=== PATIENT | female | born 2000 | race Caucasian/White ===

== ENCOUNTER 2021-04-02 16:30 | Emergency (ER) | payer OTHER ==
[2021-04-02 17:13] VITALS: BP 114/64; PULSE 63; RESP 18; TEMP 98.3
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
== END 2021-04-02 20:55 | disposition home or self-care (01) ==
LOC: EC 16:30
DX: F32.9 Major depressive disorder, single episode, unspecified (principal); T14.91XA Suicide attempt, initial encounter; Z20.822 Contact with and (suspected) exposure to COVID-19; Z79.1 Long term (current) use of non-steroidal anti-inflammatories (NSAID); X83.8XXA Intentional self-harm by other specified means, initial encounter
CPT/HCPCS: 87635; 99285

== ENCOUNTER 2024-03-28 13:44 | Outpatient (CLI) | payer OTHER ==
[2024-03-28 15:36] VITALS: BP 116/69; PULSE 99; RESP 16; TEMP 98.2
--- NOTE | 2024-04-10 09:55 | P.MSEPDOC ---
Presenting Problems - Arrival Data Date of Arrival on Unit: 03/28/24 Time of Arrival on Unit: 13:44 Mode of Transport: Ambulatory - Complaint OB-Reason for Admission/Chief Complaint: Possible Onset of Labor Medical History - Information : 1 Para: 0 Term: 0 : 0 Abortions: Spontaneous or Elective: 0 Number of Living Children: 0 - Gestational Age Gestational Age by ANTONIO (wks/days): 38 Weeks and 3 Days Review of Systems - Review of Systems Constitutional: No problems Breast: No problems ENT: No problems Cardiovascular: No problems Respiratory: No problems Gastrointestinal: No problems Genitourinary: No problems Musculoskeletal: No problems Neurological: No problems Skin: No problems Vital Signs - Temperature Temperature: 98.2 F Temperature Source: Temporal Artery Scan - Pulse Right Sitting Pulse Rate: 99 Pulse Assessment Method: Automatic Cuff - Respirations Respiratory Rate: 16 Oxygen Delivery Method: Room Air O2 Sat by Pulse Oximetry: 99 - Blood Pressure Right Arm Blood Pressure: 116/69 Blood Pressure Mean: 84 Blood Pressure Source: Automatic Cuff Medical Screen Scoring - Cervical Exam Dilation (cm): 1.5 Effacement (%): 80 Station: -2 Membranes: Intact - Uterine Contractions Frequency From (mins): 5 Frequency To (mins): 8 Duration From (seconds): 60 Duration To (seconds): 80 Intensity: Mild Resting: Soft to palpation - Assessment - Baby A Baseline FHR: 130 Heart Rate - NICHD Category: Category I (Normal) NST: Reactive Physician Notification - Physician Notified Physician Notified Date: 03/28/24 Physician Notified Time: 15:03 Physician: Staci Barron New Order Received: Yes (d/c) Maternal Triage Index - Non-Urgent/Priority 4 Non-Urgent Priority 4: Yes Criteria Met for Priority 4: reactive nst, mild contractions, no change in cervix Disposition - Disposition OB Disposition: Discharge to home, Written follow up instructions reviewed Discharge Date: 03/28/24 Discharge Time: 15:13 I agree with the RN Medical Screening Exam: Yes Case reviewed; plan agreed upon as documented in EMR&OBIX.: Yes Diagnosis: FALSE LABOR AT OR AFTER 37 COMPLETED WEEKS OF GESTATION
== END 2024-03-28 15:13 | disposition home or self-care (01) ==
LOC: FBPOP 13:44
PROVIDERS: ATTEND Obstetrics & Gynecology Obstetrics
CPT/HCPCS: 59025; 99213

== ENCOUNTER 2024-03-29 23:57 | Inpatient (IN) | payer OTHER ==
[2024-03-30] MEDS ORDERED: TRANEXAMIC 1,000 MG/100ML-NACL 1,000 MG in EMPTY BAG 1 BAG IV PRN (00:32)
[2024-03-30] MEDS ORDERED: TERBUTALINE 1 MG/ML VIAL SQ PRN (00:32)
[2024-03-30] MEDS ORDERED: METHYLERGONOVINE 0.2 MG/ML 1 ML AMP IM PRN (00:32)
[2024-03-30] MEDS ORDERED: miSOPROStoL 200 MCG TAB PO PRN (00:32)
[2024-03-30] MEDS ORDERED: LIDOCAINE 0.5% (PF) 5 MG/ML (50 ML SDV) SQ PRN (00:32)
[2024-03-30] MEDS ORDERED: OXYTOCIN 10 UNIT/ML 1 ML VIAL IM PRN (00:32)
[2024-03-30] MEDS ORDERED: miSOPROStoL 200 MCG TAB RECTAL PRN (00:32)
[2024-03-30] MEDS ORDERED: CARBOPROST TROMETHAMINE 250 MCG/ML 1 ML AMP IM PRN (00:32)
[2024-03-30] MEDS: LACTATED RINGERS 1,000 ML IV SCH (00:35)
[2024-03-30] MEDS ORDERED: OXYTOCIN 30 UNITS/500 ML NS 30 UNIT in SALINE 1 500ML.BAG IV SCH (00:45)
[2024-03-30 00:50] LABS: Basophils % (A) 0 %; Eosinophils # (A) 0.1 k/uL (0-0.7); Eosinophils % (A) 1 %; HCT 34.3 % (34.0-46.0); HGB 11.5 gm/dL (11.4-16.0); Lymphocytes % (A) 16 %; MCH 28.8 pg (25.0-35.0); MCHC 33.5 g/dL (31.0-37.0); Mean Platelet Volume 8.5; Monocytes # (A) 0.8 k/uL (0-1.0); Monocytes % (A) 6 %; Neutrophils # (A) 9.4 k/uL (1.3-7.7); Neutrophils % (A) 75 %; Platelet Count 225 k/uL (150-450); RBC 3.99 m/uL (3.80-5.40); RDW 13.4 % (11.5-15.5); WBC 12.6 k/uL (3.8-10.6)
[2024-03-30] MEDS ORDERED: SODIUM CHLORIDE 0.9% 250 ML BAG ONE (01:19)
[2024-03-30] MEDS ORDERED: ROPIVACAINE 5 MG/ML 30 ML VIAL ONE (01:19)
[2024-03-30] MEDS ORDERED: fentaNYL (PF) 50 MCG/ML 5 ML AMP ONE (01:19)
--- NOTE | 2024-03-30 09:43 | P.HPOB ---
History of Present Illness H&P Date: 03/30/24 Chief Complaint: IUP at 38 and 5/7 weeks, active labor 24-year-old 1 para 0 that presented to labor and delivery at 38-5/7 weeks, estimated due date of 04/08 with complaints of regular painful contractions. Patient states contractions began in the early evening and became uncomfortable. Patient presented to labor and delivery and was noted to be 3 cm dilated. Patient was admitted to labor and delivery. Patient notes good movement denies vaginal bleeding or loss of fluid. Patient has been receiving routine care which has been essentially uncomplicated. On blood work this patient is a lot of of O+, rubella status immune, hepatitis B surface engine negative, HIV negative, RPR is nonreactive, hepatitis C is nonreactive, group B strep culture is negative. Review of Systems Constitutional: Denies chills, Denies fatigue, Denies fever Ears, nose, mouth and throat: Denies headache Cardiovascular: Reports leg edema Respiratory: Denies dyspnea Gastrointestinal: Denies constipation, Denies diarrhea, Denies nausea, Denies vomiting Genitourinary: Reports Past Medical History Past Medical History: No Reported History Additional Past Medical History / Comment(s): asthma as child resolved per patient History of Any Multi-Drug Resistant Organisms: None Reported Past Surgical History: No Surgical Hx Reported Past Psychological History: No Psychological Hx Reported Smoking Status: Former smoker Past Alcohol Use History: None Reported Past Drug Use History: None Reported Medications and Allergies Home Medications Medication Instructions Recorded Confirmed Type Aspirin 81 mg PO DAILY 03/28/24 03/30/24 History Vit No.179/Iron/Folic 1 tab PO DAILY 03/28/24 03/30/24 History [ Tablet] Allergies Allergy/AdvReac Type Severity Reaction Status Date / Time No Known Allergies Allergy Verified 03/28/24 14:07 Exam Osteopathic Statement: *. No significant issues noted on an osteopathic structural exam other than those noted in the History and Physical/Consult. Vital Signs Temp Pulse Resp BP Pulse Ox 03/30/24 00:32 97.4 F L 87 15 128/68 97 03/30/24 00:06 97.4 F L 87 15 128/68 97 Intake and Output 03/29/24 03/30/24 03/30/24 22:59 06:59 14:59 Other: Weight 67.132 kg Patient is seen and examined this morning, in general is a well-nourished and well developed female. Breathing is noted to be nonlabored, abdomen is noted to be gravid, on cervical exam she is 9/100/0 station bulging bag of water is appreciated, amniotomy is performed and clear fluid was obtained. heart tones noted be category 1 and she is laurie every 1 to 2 minutes. Results Result Diagrams: 03/30/24 00:40 Abnormal Lab Results - Last 24 Hours (Table) 03/30/24 Range/Units 00:40 WBC 12.6 H (3.8-10.6) k/uL Neutrophils # 9.4 H (1.3-7.7) k/uL Assessment and Plan (1) Term Current Visit: Yes Status: Acute Code(s): Z34.90 - ENCNTR FOR SUPRVSN OF NORMAL , UNSP, UNSP TRIMESTER SNOMED Code(s): 42204219 (2) Active labor Current Visit: Yes Status: Acute Code(s): XYZ2701 - SNOMED Code(s): 498095910 Plan: 24-year-old 1 para 0 at 38-5/7 weeks that presented in active labor. Patient was admitted overnight and made good progress to labor. Patient did receive epidural for analgesia. Anticipate spontaneous vaginal delivery.
[2024-03-30] MEDS ORDERED: LANOLIN CREAM 1 GM TUBE TOPICAL PRN (11:09)
[2024-03-30] MEDS ORDERED: diphenhydrAMINE 25 MG CAP PO PRN (11:09)
[2024-03-30] MEDS ORDERED: ZOLPIDEM 5 MG TAB PO PRN (11:09)
[2024-03-30] MEDS ORDERED: BENZOCAINE/MENTHOL SPRAY 1 GM/SPRAY AEROSOL TOPICAL PRN (11:09)
[2024-03-30] MEDS ORDERED: SIMETHICONE 80 MG CHEWABLE PO PRN (11:09)
[2024-03-30] MEDS ORDERED: HYDROCORTISONE 2.5% RECTAL CREAM 30 GM TUBE RECTAL PRN (11:09)
[2024-03-30] MEDS ORDERED: diphenhydrAMINE 50 MG CAP PO PRN (11:09)
[2024-03-30] MEDS ORDERED: diphenhydrAMINE 50 MG/ML 1 ML VIAL IVP PRN ×2 (11:09)
--- NOTE | 2024-03-30 11:20 | P.PROBDLV ---
Vaginal Delivery Note - . Vaginal Delivery Note: Findings: Viable male infant delivered at 1051 24-year-old 1 para 0 at 38-5/7 weeks that presented to labor and delivery with complaints of regular painful contractions. Patient was admitted to labor and delivery and did request epidural. Epidural was placed without difficulty by the anesthesia department. Patient made good progress toward complete dilation. Once completely dilated patient began pushing and had a normal spontaneous vaginal delivery of a viable male at 1051, Apgars of 9 and 9 at 1 and 5 minutes respectively. Patient did have a mild shoulder dystocia diagnosed after delivery of the head reduced with Scotty and suprapubic pressure. Dystocia lasting probably 10 to 15 seconds. Spontaneous cry was noted at delivery. Umbilical cord was doubly clamped and cut, placenta was delivered spontaneously intact with a three-vessel cord being noted. Uterus was noted to be firm and below the umbilicus after delivery of the placenta. On inspection the patient's vaginal vault a right lateral sidewall laceration was appreciated. This was repaired in the usual fashion with 3-0 Rapide. Hemostasis was noted after repair. All counts were to be correct x 2 at the end of the delivery. Patient and infant tolerated delivery well and are resting comfortably.
[2024-03-30] MEDS: IBUPROFEN 800 MG TAB PO SCH (12:14)
[2024-03-30] MEDS: ACETAMINOPHEN TAB 500 MG TAB PO SCH (17:19)
[2024-03-30] MEDS: SENNOSIDES-DOCUSATE SODIUM 1 EACH TAB PO SCH (20:10)
--- NOTE | 2024-03-31 08:54 | P.DS ---
Providers Date of admission: 03/30/24 00:24 Expected date of discharge: 03/31/24 Attending physician: Edel Horn MD Primary care physician: Stated None Hospital Course: Ms. Bravo is a 24 year old now PPD#1 s/p normal spontaneous vaginal delivery. The delivery was complicated by a mild shoulder dystocia, 10-15 seconds long resolved with Scotty position and suprapubic pressure. The patient is doing well this morning and had no acute events overnight. She has no complaints this morning. She reports minimal lochia, passing flatus, voiding without difficulty, ambulating, and eating/drinking without nausea or vomiting. doing well at bedside, s/p circumcision. She denies chest pain, shortness of breathing, fevers, or chills overnight. She denies pain or swelling in the legs. restrictions are reviewed with the patient including pelvic rest for 6 weeks. The patient is encouraged to call the office if she experiences any heavy bleeding, foul-smelling discharge, breast complaints, or any if she has any other concerns. She will follow up in the office with in 6 weeks for exam. All questions are answered. Assessment: 24 year old now PPD#1 s/p complicated by mild shoulder dystocia Patient Condition at Discharge: Good Plan - Discharge Summary Discharge Rx Participant: No New Discharge Prescriptions: New Ibuprofen [Motrin] 600 mg PO Q6HR PRN #30 tab PRN Reason: Mild Pain (Scale 1 To 3) Acetaminophen Tab [Tylenol] 650 mg PO Q6H PRN #30 tab PRN Reason: Mild Pain (Scale 1 To 3) No Action Vit No.179/Iron/Folic [ Tablet] 1 tab PO DAILY Aspirin 81 mg PO DAILY Discharge Medication List Aspirin 81 mg PO DAILY 03/28/24 [History] Vit No.179/Iron/Folic [ Tablet] 1 tab PO DAILY 03/28/24 [History] Acetaminophen Tab [Tylenol] 650 mg PO Q6H PRN #30 tab 03/31/24 [Rx] Ibuprofen [Motrin] 600 mg PO Q6HR PRN #30 tab 03/31/24 [Rx] Follow up Appointment(s)/Referral(s): Edel Horn MD [STAFF PHYSICIAN] - 6 Weeks Activity/Diet/Wound Care/Special Instructions: Instructions 1. Do not begin any exercise program for 3 weeks. 2. Do not resume sexual relations for 6 weeks or longer if uncomfortable. 3. You may take tub baths or showers at any time. 4. You may use tampons if desired after 6 weeks. 5. Keep any areas repaired with stitches clean and dry. 6. If you are not nursing, wear a good fitting, supportive bra during the day and limit fluid intake for at least 1 week to prevent breast engorgement. 7. Call the office, , within the next week to make appointment for your 6 week checkup if it has not already been made. 8. Report any of the following occurrences to the doctor promptly: a. Heavy, excessive bleeding b. Chills, fever c. Burning or frequency of urination d. Pain or redness and breasts if nursing e. Increasing pain or swelling of vulva (stitches). In addition to the above instructions, the following additional should be followed: 1. No heavy lifting or straining (exercising) until after 6 week checkup. 2. Keep abdominal incision clean and dry: You may wear a dressing if more comfortable. 3. Make office appointment for 2 weeks after delivery date. Discharge Disposition: HOME SELF-CARE
[2024-03-31] MEDS ORDERED: PRENATAL VIT-IRON-FOLIC ACID 1 EACH TABLET PO SCH (09:00)
[2024-03-31] MEDS ORDERED: ASPIRIN 81 MG PO SCH (09:00)
[2024-03-31 09:06] VITALS: BP 110/65; PULSE 72; RESP 16; TEMP 98.2
== END 2024-03-31 13:20 | disposition home or self-care (01) | DRG 560 ==
LOC: FBPOP 23:57 → 4FBP 03-30 00:24
PROVIDERS: ADMIT Obstetrics & Gynecology Obstetrics; ATTEND Obstetrics & Gynecology
PROC: 10E0XZZ Delivery of Products of Conception, External Approach (ICD-10-PCS; principal; 2024-03-30)
PROC: 0KQM0ZZ Repair Perineum Muscle, Open Approach (ICD-10-PCS; 2024-03-30)
DX: O66.0 Obstructed labor due to shoulder dystocia (principal); J45.909 Unspecified asthma, uncomplicated; O99.52 Diseases of the respiratory system complicating childbirth; O70.1 Second degree perineal laceration during delivery; Z37.0 Single live birth; Z3A.38 38 weeks gestation of pregnancy; Z79.82 Long term (current) use of aspirin; Z87.891 Personal history of nicotine dependence
CPT/HCPCS: 59025; 84112; 85025; 86850; 86900; 86901; 99213